=== PATIENT | female | born 2005 | race Caucasian/White ===

== ENCOUNTER → 2023-12-03 09:03 | Outpatient (REF) | payer OTHER, SELFPAY ==
[2023-12-05 18:50] LABS: Quantiferon NIL 0.03 IU/mL; Quantiferon TB Gold Plus Negative (Negative)
== END ==
LOC: OHS 09:03
PROVIDERS: ATTENDING PHYSICIAN Nurse Practitioner Family
DX: Z23 Encounter for immunization (principal)
CPT/HCPCS: 36415; 86480